=== PATIENT | female | born 1945 | race Two or more races ===

== ENCOUNTER 2021-07-23 12:58 | Outpatient (CLI) | payer OTHER | END 2021-07-23 12:59 | disposition home or self-care (01) | LOC: MAMO-SONO 12:58 | DX: Z12.31 Encounter for screening mammogram for malignant neoplasm of breast (principal); N60.39 Fibrosclerosis of unspecified breast ==

== ENCOUNTER 2021-07-23 14:01 | Outpatient (CLI) | payer OTHER | END 2021-07-23 14:02 | disposition home or self-care (01) | LOC: NUCLEAR 14:01 | PROVIDERS: ATTEND General Practice | DX: M81.0 Age-related osteoporosis without current pathological fracture (principal) ==